=== PATIENT | female | born 1985 ===

== ENCOUNTER 2023-05-27 12:36 | Emergency (ER) | payer MEDICAID ==
[~2023-05-27] VITALS: Ht 144.8 cm; Wt 54.1 kg
[2023-05-27 12:38] VITALS: BP 157/59; PULSE 128; RESP 18; O2SAT 99
[2023-05-27 13:50] LABS: BILIRUBIN,URINE NEGATIVE (Neg); CLARITY,URINE TURBID (Clear); COLOR,URINE YELLOW (Yellow); GLUCOSE, URINE NEGATIVE (Neg); KETONES,URINE >=80 mg/dl (Neg); LEUKOCYTE ESTERASE ,URINE TRACE (Neg); NITRITES, URINE POSITIVE (Neg); OCCULT BLOOD,URINE LARGE (Neg); PH,URINE 6.5 (4.8-8.0); PROTEIN,URINE 100 mg/dl (Neg); UROBILINOGEN,URINE 0.2 E.U/dL (0.2-1.0)
[2023-05-27 13:56] LABS: UA COLLECTION TYPE CLN CATCH MIDSTREAM
[2023-05-27 14:00] LABS: BACTERIA,URINE 4+ /HPF (Neg); SQUAMOUS EPITHELIAL CELL,UR MANY /LPF (FEW); WBC,URINE TNTC /HPF (0-4)
[2023-05-27] MEDS ORDERED: CEFD300C3 PO (14:10)
[2023-05-27] MEDS ORDERED: ketorolac trometh inj. 60 MG/2 ML VIAL IM ONE (14:25)
[2023-05-27] MEDS ORDERED: CefTRIAXone 1000mg IM Kit (w/lidocaine diluent) IM ONE (14:25)
[2023-05-27] MEDS ORDERED: ONDA4TAB12 PO (14:26)
[2023-05-27 14:51] VITALS: TEMP 99.6
== END 2023-05-27 14:53 | disposition home or self-care (01) ==
LOC: ER 12:37
DX: N39.0 Urinary tract infection, site not specified (principal)
CPT/HCPCS: 81001; 96372; 99284; J0696; J1885

== ENCOUNTER 2023-05-28 10:07 | Inpatient (IN) | payer MEDICAID ==
[~2023-05-28] VITALS: Ht 144.8 cm; Wt 54.1 kg
[~2023-05-28 10:07] MED LIST: CEFD300C3 PO; ONDA4TAB12 PO
[2023-05-28 11:17] LABS: BILIRUBIN,URINE SMALL (Neg); CLARITY,URINE CLOUDY (Clear); COLOR,URINE YELLOW (Yellow); GLUCOSE, URINE NEGATIVE (Neg); KETONES,URINE 40 mg/dl (Neg); LEUKOCYTE ESTERASE ,URINE TRACE (Neg); NITRITES, URINE NEGATIVE (Neg); OCCULT BLOOD,URINE LARGE (Neg); PROTEIN,URINE 100 mg/dl (Neg)
[2023-05-28] MEDS ORDERED: acetaminophen 325mg tablet PO ONE (11:20)
[2023-05-28 11:27] LABS: UA COLLECTION TYPE CLN CATCH MIDSTREAM
[2023-05-28 11:29] LABS: WBC,URINE 20-30 /HPF (0-4)
[2023-05-28 11:30] LABS: BACTERIA,URINE 1+ /HPF (Neg); SQUAMOUS EPITHELIAL CELL,UR MANY /LPF (FEW)
[2023-05-28 12:07] LABS: ALANINE AMINOTRANSFERASE 31 U/L (12-78); ALBUMIN 3.5 G/DL (3.4-5.0); ALBUMIN/GLOBULIN RATIO 0.7 (1.1-1.5); ALKALINE PHOSPHATASE 124 IU/L (46-116); AMYLASE 33 U/L (25-115); ANION GAP 11 (8-16); ASPARTATE AMINO TRANSFERASE 36 U/L (10-37); BILIRUBIN,TOTAL 0.3 MG/DL (0.1-1.0); BLOOD UREA NITROGEN 11 MG/DL (7-18); BUN/CREATININE RATIO 11.2 (10.0-20.0); CALCIUM 8.9 MG/DL (8.5-10.1); CHLORIDE 97 MMOL/L (99-107); CREATININE 0.98 MG/DL (0.40-0.90); GLUCOSE 90 MG/DL (70-104); LIPASE 24 U/L (16-77); POTASSIUM 3.4 MMOL/L (3.5-5.1); SODIUM 133 MMOL/L (135-145); TOTAL CARBON DIOXIDE 25.2 MMOL/L (24-32); TOTAL PROTEIN 8.2 G/DL (6.4-8.2); eCRCL 47 ML/MIN; eGFR 63 ML/MIN
[2023-05-28 12:08] LABS: BASOPHILS # (AUTO) 0.1 X10'3 (0-0.2); BASOPHILS % (AUTO) 0.4 % (0-1); EOSINOPHILS % (AUTO) 0 % (0-6); HEMOGLOBIN 13.1 g/dl (12.0-16.0); LYMPHOCYTES # (AUTO) 0.8 X10'3 (1.1-4.8); LYMPHOCYTES % (AUTO) 3.9 % (21-51); MEAN CORPUSCULAR HEMOGLOBIN 30.2 PG (27.0-31.0); MEAN CORPUSCULAR HGB CONC 33.7 g/dL (33.0-36.5); MEAN CORPUSCULAR VOLUME 89.7 FL (78-98); MEAN PLATELET VOLUME 8.4 FL (7.4-10.4); MONOCYTES # (AUTO) 1.3 X10'3 (0-0.9); NEUTROPHILS # (AUTO) 18.8 X10'3 (1.8-7.7); NEUTROPHILS % (AUTO) 89.7 % (42-75); PLATELET COUNT 258 X10'3 (140-440); RED BLOOD COUNT 4.34 X10'6 (4.20-5.60); RED CELL DISTRIBUTION WIDTH 14.4 % (11.5-14.5)
[2023-05-28] MEDS ORDERED: normal saline 1000ml 1,000 ML IV ONE ×3 (13:15→15:50)
[2023-05-28] MEDS ORDERED: ketorolac trometh. 30mg/ml inj. IV ONE (13:30)
[2023-05-28 14:30] LABS: URINE HCG NEGATIVE (NEG)
[2023-05-28] MEDS ORDERED: potassium Cl 20 mEq SR tablet PO PRN (17:45)
[2023-05-28] MEDS ORDERED: magnesium Cl slow-release 64mg tablet PO PRN (17:45)
[2023-05-28] MEDS ORDERED: magnesium hydroxide 30ml (MOM) UD suspension PO PRN (17:45)
[2023-05-28] MEDS ORDERED: magnesium 4gm in 100ml NS 100 ML IV PRN (17:45)
[2023-05-28] MEDS ORDERED: potassium Cl 40MEQ/1/2NS 520ml 520 ML IV PRN (17:45)
[2023-05-28] MEDS ORDERED: mag hydrox/Alum hydrox/simeth 30ml oral suspension PO PRN (17:45)
[2023-05-28] MEDS ORDERED: magnesium 2GM in 50ml NS 50 ML IV PRN (17:45)
[2023-05-28] MEDS: CefTRIAXone/D5W-Rocephin 1gm 50 ML IV SCH (18:59)
[2023-05-28] MEDS: normal saline 1000ml 1,000 ML IV SCH (19:00)
[2023-05-28] MEDS: K and/or MAG REPLACEMENT MC SCH (19:03)
[2023-05-28 19:04] LABS: HEMOGLOBIN A1C 5.1 % (4.5-6.2)
[2023-05-28] MEDS: HYDROcodone/acetaminophen 5mg/325mg tablet PO PRN (19:07)
[2023-05-28] MEDS: metroNIDAZOLE-Flagyl 500mg/NS 100 ML IV SCH (23:42)
[2023-05-28] MEDS: acetaminophen 325mg tablet PO PRN (23:46)
[2023-05-29] VITALS (7 sets, daily range): BP systolic 94–105; BP diastolic 56–57; PULSE 85–91; RESP 14–20; TEMP 98–103; O2SAT 96–100
[2023-05-29] MEDS ORDERED: cefepime 2g/NS 100ml ADVANTAGE 100 ML IV ONE
[2023-05-29] MEDS: normal saline 1000ml 1,000 ML IV SCH ×3 (03:05→18:00)
[2023-05-29 03:25] LABS: ALBUMIN 2.3 G/DL (3.4-5.0); ANION GAP 9 (8-16); BLOOD UREA NITROGEN 4 MG/DL (7-18); CALCIUM 7.4 MG/DL (8.5-10.1); CHLORIDE 107 MMOL/L (99-107); CHOL/HDL RATIO 2.3 (0.00-4.99); CHOLESTEROL 115 MG/DL (0-200); CREATININE 0.67 MG/DL (0.40-0.90); GLUCOSE 90 MG/DL (70-104); HDL CHOLESTEROL 50 MG/DL (35-60); LDL CHOLESTEROL 43 MG/DL (50-100); MAGNESIUM 1.8 MG/DL (1.5-2.4); PHOSPHORUS 1.6 MG/DL (2.3-4.5); POTASSIUM 3.3 MMOL/L (3.5-5.1); SODIUM 135 MMOL/L (135-145); TOTAL CARBON DIOXIDE 18.7 MMOL/L (24-32); TRIGLYCERIDES 103 MG/DL (20-135); eCRCL 69 ML/MIN; eGFR > 90 ML/MIN
[2023-05-29 03:26] LABS: EOSINOPHILS % (AUTO) 0.2 % (0-6); HEMOGLOBIN 9.6 g/dl (12.0-16.0); MEAN PLATELET VOLUME 8.2 FL (7.4-10.4); MONOCYTES # (AUTO) 1.2 X10'3 (0-0.9); NEUTROPHILS % (AUTO) 83.2 % (42-75); RED BLOOD COUNT 3.16 X10'6 (4.20-5.60)
[2023-05-29 03:28] LABS: BASOPHILS % (AUTO) 0.2 % (0-1); HEMATOCRIT 28.9 % (35.0-45.0); LYMPHOCYTES # (AUTO) 0.9 X10'3 (1.1-4.8); LYMPHOCYTES % (AUTO) 7.2 % (21-51); MEAN CORPUSCULAR HEMOGLOBIN 30.5 PG (27.0-31.0); MEAN CORPUSCULAR HGB CONC 33.3 g/dL (33.0-36.5); MEAN CORPUSCULAR VOLUME 91.5 FL (78-98); MONOCYTES % (AUTO) 9.2 % (2-12); NEUTROPHILS # (AUTO) 10.4 X10'3 (1.8-7.7); PLATELET COUNT 148 X10'3 (140-440); RED CELL DISTRIBUTION WIDTH 14.5 % (11.5-14.5); WHITE BLOOD COUNT 12.5 X10'3 (4.5-11.0)
[2023-05-29] MEDS: HYDROcodone/acetaminophen 5mg/325mg tablet PO PRN ×3 (04:08→22:26)
[2023-05-29] MEDS: acetaminophen 325mg tablet PO PRN ×2 (06:04→15:58)
--- NOTE | 2023-05-29 06:05 | NUR ---
PO tylenol given for fever
[2023-05-29] MEDS: K and/or MAG REPLACEMENT MC SCH ×2 (08:00→20:00)
[2023-05-29] MEDS: CefTRIAXone/D5W-Rocephin 1gm 50 ML IV SCH (10:08)
[2023-05-29 10:19] LABS: BILIRUBIN,URINE NEGATIVE (Neg); CLARITY,URINE CLEAR (Clear); COLOR,URINE YELLOW (Yellow); GLUCOSE, URINE NEGATIVE (Neg); KETONES,URINE 40 mg/dl (Neg); LEUKOCYTE ESTERASE ,URINE NEGATIVE (Neg); NITRITES, URINE NEGATIVE (Neg); OCCULT BLOOD,URINE SMALL (Neg); PROTEIN,URINE NEGATIVE (Neg)
[2023-05-29 10:20] LABS: UA COLLECTION TYPE OTHER
[2023-05-29 10:27] LABS: URINE AMPHETAMINE SCREEN NEGATIVE (Neg); URINE BARBITUATE SCREEN NEGATIVE (Neg); URINE BENZODIAZEPINES SCREEN NEGATIVE (Neg); URINE CANNABINOID SCREEN POSITIVE (Neg); URINE COCAINE SCREEN NEGATIVE (Neg); URINE METHADONE SCREEN NEGATIVE (Neg); URINE OPIATE SCREEN POSITIVE (Neg); URINE PHENCYCLIDINE SCREEN NEGATIVE (Neg)
[2023-05-29 10:30] LABS: SQUAMOUS EPITHELIAL CELL,UR MODERATE /LPF (FEW)
[2023-05-29 10:31] LABS: BACTERIA,URINE FEW /HPF (Neg); MUCUS STRANDS FEW /LPF (Neg); RBC,URINE 20-50 /HPF (0-2)
[2023-05-29 10:32] LABS: WBC,URINE 0-4 /HPF (0-4)
[2023-05-29] MEDS: metroNIDAZOLE-Flagyl 500mg/NS 100 ML IV SCH ×3 (11:04→23:01)
--- NOTE | 2023-05-29 12:04 | NUR ---
Initial: Pt admit for UTI, sepsis, and likely pyelonephritis with hyponatremia and hypokalemia. Pt on a regular diet, documented with 50-75% PO intake of first meal. IF pt continues with this intake pt will meet 100% estimated nutrient needs. LBM 05/25 per EMR though unsure of accuracy as pt denies constipation her H&P. Pt currently not receiving any routine bowel care though has PRN bowel care available. D/w dietary to send prunes and prune juice with next meal to assist with a BM should that truly have been when patient's LBM was. Will continue to follow closely and monitor need for further nutrition intervention. Recommendations: 1) Continue regular diet 2) Monitor need for ONS/additional protein 3) Routine bowel care 4) Weekly scaled weights Addendum: 05/29/23 at [address] Amended: Links added.
[2023-05-29] MEDS: potassium Cl 20 mEq SR tablet PO PRN ×2 (17:59→22:27)
--- NOTE | 2023-05-29 18:34 | NUR ---
Problems reprioritized. Patient report given, questions answered & plan of care reviewed with DIAMOND Walker.
--- NOTE | 2023-05-29 19:00 | NUR ---
Pt stating she wishes to leave AMA, as her was not able to stay at bedside per hospital policy as stated by charge nurse and nursing air intercept controller supervisor. Pt removed her IV and telemetry, dressed and went to the elevator, and attempted to leave the hospital, but was persuaded to stay by her . Telemetry resumed, new IV placed. Pt is resting in bed, states he will stay until visiting hours are over.
[2023-05-29] MEDS: ondansetron/PF 4mg/2ml inj IV PRN (22:29)
[2023-05-30] VITALS (7 sets, daily range): BP systolic 103–120; BP diastolic 60–74; PULSE 92–98; RESP 15–20; TEMP 97.4–102.6; O2SAT 97–99
[2023-05-30] MEDS: potassium Cl 20 mEq SR tablet PO PRN ×4 (02:44→19:04)
[2023-05-30] MEDS: normal saline 1000ml 1,000 ML IV SCH ×3 (02:44→19:57)
[2023-05-30] MEDS: HYDROcodone/acetaminophen 5mg/325mg tablet PO PRN ×2 (06:12→14:57)
[2023-05-30] MEDS: ondansetron/PF 4mg/2ml inj IV PRN (06:17)
--- NOTE | 2023-05-30 06:35 | NUR ---
Patient in room [facility] 4009. I have received report from Pam and had the opportunity to ask questions and assume patient care.
--- NOTE | 2023-05-30 06:47 | NUR ---
report to Sri BROWN
[2023-05-30 07:17] LABS: ALBUMIN 2.6 G/DL (3.4-5.0); ANION GAP 11 (8-16); BASOPHILS % (AUTO) 0.2 % (0-1); BLOOD UREA NITROGEN 1 MG/DL (7-18); BUN/CREATININE RATIO 1.4 (10.0-20.0); CALCIUM 8.3 MG/DL (8.5-10.1); CHLORIDE 105 MMOL/L (99-107); CREATININE 0.71 MG/DL (0.40-0.90); EOSINOPHILS % (AUTO) 0.4 % (0-6); GLUCOSE 101 MG/DL (70-104); HEMATOCRIT 31.4 % (35.0-45.0); HEMOGLOBIN 10.6 g/dl (12.0-16.0); LYMPHOCYTES # (AUTO) 0.8 X10'3 (1.1-4.8); LYMPHOCYTES % (AUTO) 6.7 % (21-51); MAGNESIUM 1.8 MG/DL (1.5-2.4); MEAN CORPUSCULAR HEMOGLOBIN 30.4 PG (27.0-31.0); MEAN CORPUSCULAR HGB CONC 33.9 g/dL (33.0-36.5); MEAN CORPUSCULAR VOLUME 89.7 FL (78-98); MEAN PLATELET VOLUME 8.5 FL (7.4-10.4); MONOCYTES % (AUTO) 8.6 % (2-12); NEUTROPHILS # (AUTO) 9.8 X10'3 (1.8-7.7); NEUTROPHILS % (AUTO) 84.1 % (42-75); PHOSPHORUS 1.3 MG/DL (2.3-4.5); PLATELET COUNT 226 X10'3 (140-440); POTASSIUM 3.3 MMOL/L (3.5-5.1); RED CELL DISTRIBUTION WIDTH 14.4 % (11.5-14.5); SODIUM 134 MMOL/L (135-145); TOTAL CARBON DIOXIDE 17.6 MMOL/L (24-32); WHITE BLOOD COUNT 11.6 X10'3 (4.5-11.0); eCRCL 65 ML/MIN; eGFR > 90 ML/MIN
[2023-05-30] MEDS: CefTRIAXone/D5W-Rocephin 1gm 50 ML IV SCH (07:31)
[2023-05-30] MEDS: K and/or MAG REPLACEMENT MC SCH ×2 (08:00→20:00)
[2023-05-30] MEDS: metroNIDAZOLE-Flagyl 500mg/NS 100 ML IV SCH ×2 (08:30→15:15)
[2023-05-30] MEDS ORDERED: sodium phosphate inj. 15 MMOL in dextrose 5%-water 250 ML IV PRN (09:40)
[2023-05-30] MEDS ORDERED: Neutra Phos packet PO PRN (09:40)
[2023-05-30] MEDS ORDERED: sodium phosphate inj. 30 MMOL in dextrose 5%-water 250 ML IV PRN (09:40)
[2023-05-30 14:22] LABS: C DIFF ANTIGEN NEGATIVE (NEGATIVE); C DIFF SPECIMEN=DIARRHEA? ACCEPTABLE; C DIFFICILE TOXINS A&B NEGATIVE (Neg)
--- NOTE | 2023-05-30 18:26 | NUR ---
Problems reprioritized. Patient report given, questions answered & plan of care reviewed with kiersten.
[2023-05-30] MEDS: acetaminophen 325mg tablet PO PRN (19:05)
[2023-05-31] MEDS: acetaminophen 325mg tablet PO PRN (03:59)
[2023-05-31 06:00] VITALS: BP 113/63; PULSE 94; RESP 16; TEMP 98.2; O2SAT 100
[2023-05-31 06:30] LABS: BASOPHILS % (AUTO) 0.5 % (0-1); EOSINOPHILS # (AUTO) 0.1 X10'3 (0-0.9); EOSINOPHILS % (AUTO) 1.5 % (0-6); HEMATOCRIT 33.5 % (35.0-45.0); HEMOGLOBIN 11.2 g/dl (12.0-16.0); LYMPHOCYTES # (AUTO) 1.1 X10'3 (1.1-4.8); LYMPHOCYTES % (AUTO) 11.1 % (21-51); MEAN CORPUSCULAR HEMOGLOBIN 30.1 PG (27.0-31.0); MEAN CORPUSCULAR HGB CONC 33.5 g/dL (33.0-36.5); MEAN CORPUSCULAR VOLUME 89.9 FL (78-98); MEAN PLATELET VOLUME 8.1 FL (7.4-10.4); MONOCYTES # (AUTO) 1.2 X10'3 (0-0.9); NEUTROPHILS # (AUTO) 7.1 X10'3 (1.8-7.7); NEUTROPHILS % (AUTO) 73.9 % (42-75); PLATELET COUNT 272 X10'3 (140-440); RED BLOOD COUNT 3.72 X10'6 (4.20-5.60); RED CELL DISTRIBUTION WIDTH 15.2 % (11.5-14.5); WHITE BLOOD COUNT 9.6 X10'3 (4.5-11.0)
--- NOTE | 2023-05-31 06:41 | NUR ---
reported to days noted pt has new IV. at bedside.
--- NOTE | 2023-05-31 06:43 | NUR ---
Patient in room [facility] 4009. I have received report from KEVIN Santos and had the opportunity to ask questions and assume patient care.
[2023-05-31 06:48] LABS: ALBUMIN 2.7 G/DL (3.4-5.0); ANION GAP 15 (8-16); BLOOD UREA NITROGEN 2 MG/DL (7-18); BUN/CREATININE RATIO 3.3 (10.0-20.0); CALCIUM 8.8 MG/DL (8.5-10.1); CHLORIDE 102 MMOL/L (99-107); GLUCOSE 90 MG/DL (70-104); MAGNESIUM 1.8 MG/DL (1.5-2.4); PHOSPHORUS 2.7 MG/DL (2.3-4.5); POTASSIUM 3.5 MMOL/L (3.5-5.1); SODIUM 134 MMOL/L (135-145); TOTAL CARBON DIOXIDE 17.5 MMOL/L (24-32); eCRCL 77 ML/MIN; eGFR > 90 ML/MIN
[2023-05-31] MEDS: metroNIDAZOLE-Flagyl 500mg/NS 100 ML IV SCH ×2 (07:04)
[2023-05-31] MEDS: K and/or MAG REPLACEMENT MC SCH (08:00)
[2023-05-31] MEDS ORDERED: METR-159 PO (10:07)
[2023-05-31] MEDS ORDERED: CIPR-259 PO (10:07)
[2023-05-31] MEDS ORDERED: FERR324T4 PO (10:38)
[2023-05-31] MEDS: CefTRIAXone/D5W-Rocephin 1gm 50 ML IV SCH (11:13)
[2023-05-31] MEDS: HYDROcodone/acetaminophen 5mg/325mg tablet PO PRN (11:39)
--- NOTE | 2023-05-31 12:50 | NUR ---
Pt was given discharge packet and was able to ask questions upon discharge. pt was escorted by staff in W/C with all of her belongings. IV was discontinued with cannula intact and pt stable and in no distress. Pt left in private vehicle with her .
== END 2023-05-31 12:50 | disposition home or self-care (01) | DRG 720 ==
LOC: ER 10:07 → ED HOLD 17:47 → ORTHO 4S 05-29 07:54
PROVIDERS: ADMIT Family Medicine; ATTEND Student in an Organized Health Care Education/Training Program
DX: A41.9 Sepsis, unspecified organism (principal); E87.1 Hypo-osmolality and hyponatremia; N12 Tubulo-interstitial nephritis, not specified as acute or chronic; F17.210 Nicotine dependence, cigarettes, uncomplicated; R65.20 Severe sepsis without septic shock; K57.90 Diverticulosis of intestine, part unspecified, without perforation or abscess without bleeding; Z20.822 Contact with and (suspected) exposure to COVID-19; N85.8 Other specified noninflammatory disorders of uterus; E87.6 Hypokalemia; N73.9 Female pelvic inflammatory disease, unspecified; Z87.440 Personal history of urinary (tract) infections; Z98.891 History of uterine scar from previous surgery
CPT/HCPCS: 36415; 71045; 74176; 80048; 80053; 80061; 80305; 81001; 81025; 82150; 83036; 83605; 83690; 83735; 84100; 84145; 85025; 87040; 87088; 87324; 87449; 87502; 87503; 87811; 96374; 99285; A6258; C1758; G0378; J0696; J1885; J2405; J3490; J7030; J7060